=== PATIENT | female | born 1955 | race Asian ===

== ENCOUNTER 2019-08-19 22:06 | Inpatient (IN) | payer SELFPAY ==
[~2019-08-19] VITALS: Ht 157.5 cm; Wt 44.5 kg
--- NOTE | 2019-08-19 22:28 | NUR ---
PATIENT CAME TO ER BED 9 BIB [facility] FROM SNF C/O BLOOD IN STOOL. PER EMS REPORT, PATIENT WAS FOUND WITH BLOOD IN STOOL FROM FACILITY. PT HAS A WOUND VAC ON RIGHT CALF. PT IS ICELANDIC SPEAKING ONLY. PT DENIES ANY PAIN. PATIENT IS ALERT AND AWAKE. PT HAS A TRACHEOSTOMY. CONNECTED TO MONITOR.
[2019-08-19] MEDS ORDERED: PANTOPRAZOLE 80 MG in IV NS 0.9% 100 ML IV ONE (22:30)
[2019-08-19] MEDS ORDERED: PANTOPRAZOLE 40 MG VIAL ONE (22:31)
[2019-08-19 22:47] LABS: BASOPHILS % (AUTO) 0.4 % (0.0-2.0); EOSINOPHILS % (AUTO) 3.4 % (0.0-6.0); LYMPHOCYTES # (AUTO) 2.6 /CMM (0.8-4.8); MEAN CORPUSCULAR HGB CONC 33 g/dl (31.0-36.0); MEAN CORPUSCULAR VOLUME 91 fL (82-100); MONOCYTES # (AUTO) 1.1 /CMM (0.1-1.30); MONOCYTES % (AUTO) 8.5 % (2.0-12.0); NEUTROPHILS # (AUTO) 8.4 /CMM (1.8-8.9); NEUTROPHILS % (AUTO) 66.7 % (43.0-81.0); PLATELET COUNT (AUTO) 492 /CMM (150-450); WHITE BLOOD COUNT (AUTO) 12.6 K/uL (4.3-11.0)
[2019-08-19 22:48] LABS: HEMATOCRIT 22 % (33-45); HEMOGLOBIN 7.2 g/dL (11.5-14.8); RED BLOOD CELL COUNT(AUTO) 2.39 MIL/uL (4.0-5.2)
[2019-08-19 22:54] LABS: CALCIUM, SERUM 7.8 mg/dL (8.5-10.1); CREATININE 0.7 mg/dL (0.6-1.3); POTASSIUM 3.6 mmol/L (3.5-5.1)
[2019-08-19 23:00] LABS: ALBUMIN 1.7 g/dL (3.4-5.0); BILIRUBIN,TOTAL 0.2 mg/dL (0.2-1.0); TOTAL PROTEIN, SERUM 5.6 g/dL (6.4-8.2)
[2019-08-20] MEDS ORDERED: ALBUTEROL FS 2.5 MG/0.5 ML VIAL.NEB NEB PRN (00:30)
[2019-08-20] MEDS ORDERED: IV D5/ 0.9% NACL 1,000 ML IV PRN (00:30)
[2019-08-20] MEDS ORDERED: LORAZEPAM INJ 2 MG/ML VIAL IV PRN (00:30)
[2019-08-20] MEDS ORDERED: Z GUARD REMEDY 2 OZ OINT TP PRN (00:30)
[2019-08-20] MEDS ORDERED: ONDANSETRON HCL/PF 4 MG/2 ML VIAL IVP PRN (00:30)
[2019-08-20] MEDS ORDERED: ACETAMINOPHEN 650 MG/SUPP.RECT RC PRN (00:30)
[2019-08-20] MEDS ORDERED: IPRATROPIUM NEB FS 0.5 MG/2.5 ML AMPUL.NEB NEB PRN (00:30)
--- NOTE | 2019-08-20 00:43 | NUR ---
REPORT GIVEN TO TITI QUIROZ ROLAN
--- NOTE | 2019-08-20 01:20 | NUR ---
PILE OPERATOR OPENING/ADMITTING NOTES RECEIVED PATIENT VIA NORMARKENIA FROM ER. DX GI BLEED. PATIENT AWAKE, A/OX2, ABLE TO MAKE NEEDS KNOWN, WOLOF SPEAKING, KNOWS LITTLE SINHALA. DENIES ANY PAIN AT THE MOMENT. ON TELE MONITOR ST WITH HR 120'S. TRACH NOTED AND PLACED ON OXYGEN 3L VIA NASAL CANNULA, NO SOB OR RESPIRATORY DISTRESS NOTED. IV SITES CONY PICC, FLUSHING AND PATENT, SITE C/D/I. SKIN ASSESSMENT DONE AND RECORDED (SEE FLOWSHEET). RIGHT POSTERIOR LEG NOTED WITH WOUND VAC, SITE INTACT. PATIENT ORIENTED TO ROOM. KEPT PT CLEAN, DRY, AND COMFORTABLE. SAFETY MEASURES IN PLACE; BED IS LOW AND IN LOCKED POSITION, CALL LIGHT WITHIN REACH, BED ALARM ON, SR UPX3, HOB ELEVATED. WILL CONTINUE TO MONITOR PT CLOSELY. WILL ATTEND TO ADMITTING ORDERS.
[2019-08-20 01:42] VITALS: BP 136/76
[2019-08-20 04:00] VITALS: BP 157/119
--- NOTE | 2019-08-20 07:20 | NUR ---
ETHYLBENZENE OXIDIZER CLOSING NOTES PATIENT SLEEPING IN BED, BUT EASY TO AROUSE, A/OX2. NO DISTRESS NOTED. ON TELE MONITOR ST WITH HR 100'S. TRACH ON OXYGEN 3L, NO SOB OR RESPIRATORY DISTRESS NOTED. KEPT PT CLEAN, DRY, AND COMFORTABLE. SAFETY MEASURES IN PLACE; BED IS LOW AND IN LOCKED POSITION, CALL LIGHT WITHIN REACH, BED ALARM ON, SR UPX3, HOB ELEVATED. ENDORSED TO AM RN FOR ROLAN.
--- NOTE | 2019-08-20 07:32 | NUR ---
RN OPENING NOTE: RECEIVED PATIENT RESTING IN BED THIS MORNING. NO ACUTE DISTRESS NOTED. ALERT X2. PATIENT HAS TRACH ON 3L T-PIECE, TOLERATING WELL. ON TELE MONITOR, SINUS TACHY NOTED. PATIENT IS NPO. PICC LINE AT [facility], FLUSHING WELL, SITE C/D/I, NO SIGNS OF COMPLICATIONS NOTED. WOUND VAC NOTED ON RLE, DRAINING WELL, DRESSING INTACT. RHONCHI HEARD UPON AUSCULTATION. SAFETY MEASURES IMPLICATED. BED IN LOWEST POSITION, LOCKED, SIDE RAILS UP X2, CALL LIGHT WITHIN REACH. WILL CONTINUE TO MONITOR PATIENT FOR ANY CHANGES. Addendum: 08/20/19 at 0801 by EMILY DAS RN PATIENT HAS GT. FEEDING HELD D/T NPO.
[2019-08-20 08:00] VITALS: BP 147/69
[2019-08-20] MEDS: PANTOPRAZOLE 40 MG VIAL IV SCH ×2 (08:15→20:47)
[2019-08-20] MEDS ORDERED: ACETAMINOPHEN 325 MG TABLET PO PRN (10:00)
[2019-08-20] MEDS ORDERED: diphenhydrAMINE HCL 50 MG CAPSULE PO PRN (10:00)
[2019-08-20] MEDS: IV D5/ 0.9% NACL 1,000 ML IV SCH ×2 (10:09→16:46)
[2019-08-20 10:13] LABS: HEMATOCRIT 24 % (33-45); HEMOGLOBIN 8.1 g/dL (11.5-14.8); MEAN CORPUSCULAR HGB CONC 34 g/dl (31.0-36.0); MEAN CORPUSCULAR VOLUME 91 fL (82-100); PLATELET COUNT (AUTO) 584 /CMM (150-450); RED BLOOD CELL COUNT(AUTO) 2.65 MIL/uL (4.0-5.2); WHITE BLOOD COUNT (AUTO) 12.8 K/uL (4.3-11.0)
[2019-08-20] MEDS ORDERED: PIPERACILLIN /TAZOBACTAM 3.375 G in IV D5W 50 ML IV ONE (10:30)
[2019-08-20 11:04] LABS: OCCULT BLOOD STOOL NEGATIVE (NEGATIVE)
[2019-08-20] MEDS ORDERED: ALTEPLASE CATHFLO 2 MG/VIAL IV ONE (11:30)
--- NOTE | 2019-08-20 11:54 | NUR ---
PATIENT HAS A PICC LINE DOUBLE LUMEN. ONE PORT IS CLOGGED. CONTACTED , NEW ORDER FOR ACTIVASE. MD IS AWARE OF PATIENT'S GI BLEED. Addendum: 08/20/19 at 1330 by EMILY DAS RN PATIENT'S LUMEN UNCLOGGED WITH CATHFLO. LINE FLUSHES AND POSITIVE BLOOD RETURN ON ASPIRATION.
[2019-08-20 12:00] VITALS: BP 165/77
[2019-08-20] MEDS: MORPHINE SULFATE INJ 2 MG/ML DISP.SYRIN IV PRN (15:44)
[2019-08-20 16:00] VITALS: BP_SYST 165; BP_SYST 176; BP_DIAS 70; BP_DIAS 81
--- NOTE | 2019-08-20 16:19 | NUR ---
PATIENT'S 0955 HGB 8.1, CONTACTED DR DE LA CRUZ FOR VERIFICATION ON WHETHER OR NOT TO INFUSE BLOOD D/T HGB INCREASING FROM 7.2. AWAITING RESPONSE BACK. Addendum: 08/20/19 at 1713 by CHRIST FIGUEROA RN MD ORDERED TO HOLD BLOOD TRANSFUSION, REPEAT H&H AND CONTACT HIM WITH NEW RESULTS
[2019-08-20] MEDS: PIPERACILLIN /TAZOBACTAM 3.375 G in IV D5W 100 ML IV SCH (16:45)
[2019-08-20 17:46] LABS: HEMOGLOBIN 8.2 g/dL (11.5-14.8)
--- NOTE | 2019-08-20 19:26 | NUR ---
RN CLOSING NOTE: PATIENT IS IN BED RESTING WITH NO ACUTE CHANGES NOTED. VSS. PATIENT NEEDS HAVE BEEN MET. PATIENT HAS TRACH, AEROSOL @ 3L, NO SIGNS OF RESPIRATORY DISTRESS NOTED. PICC LINE AT CONY, BOTH LUMENS FLUSHING WELL, SITE C/D/I, NO SIGNS OF COMPLICATIONS NOTED. WOUND VACC AT RLE, DRAINING WELL. WOUND CONSULT PENDING. GT SITE C/D/I, CLAMPED, PT NPO. SAFETY MEASURES HAVE BEEN IMPLEMENTED, CALL LIGHT WITHIN REACH, BED IN LOWEST AND LOCKED POSITION, SIDE RAILS UP X2. PATIENT HAS BEEN ENDORSED TO ONCOMING SHIFT FOR CONTINUITY OF CARE.
--- NOTE | 2019-08-20 19:31 | NUR ---
MS RN OPENING NOTES PATIENT RECEIVED RESTING IN BED, A/O X2-3 K[place]AKH SPEAKING, KNOWS LITTLE DIVEHI. PATIENT HAS TRACH, AEROSOL AT 3L, BREATHING EVEN AND UNLABORED NO SIGNS OF RESPIRATORY DISTRESS. NO SIGNS OF ACUTE DISTRESS AND NO CURRENT COMPLAINTS OF PAIN OR DISCOMFORT. PICC JOSELINE LOCATED ON CONY BOTH LUMENS PATENT AND INTACT. WOUND VACC NOTED ON RIGHT LOWER LEG. GTUBE SITE NOTED AND CLAMPED. SAFETY PRECAUTIONS IN PLACE WITH BED IN LOWEST POSITION, BREAKS ON, SIDE RAILS UP X 2, AND CALL LIGHT WITHIN REACH. WILL CONTINUE TO MONITOR.
[2019-08-20 20:00] VITALS: BP 166/79
[2019-08-20] MEDS ORDERED: methylPREDNISolone SOD SUCC 500 MG in IV NS 0.9% 100 ML IV SCH (20:00)
[2019-08-21] MEDS: PIPERACILLIN /TAZOBACTAM 3.375 G in IV D5W 100 ML IV SCH ×2 (00:23→05:22)
--- NOTE | 2019-08-21 06:49 | NUR ---
MS RN CLOSING NOTES PATIENT IS IN BED RESTING A/O X3, LATVIAN SPEAKING MOSTLY BUT ABLE TO UNDERSTAND ANGUILLAN. PATIENT NEEDS HAVE BEEN MET, PATIENT WAS KEPT CLEAN THROUGHOUT THE NIGHT. PATIENT HAS TRACH, AEROSOL @ 3L, NO SIGNS OF RESPIRATORY DISTRESS NOTED. PATIENT WAS SUCTIONED NEEDED. PICC LINE AT CONY, BOTH LUMENS FLUSHING WELL, RUNNING D5NS @100ML/ HR. WOUND VACC AT RLE, DRAINING WELL. WOUND CONSULT PENDING. GT SITE CLAMPED, PT NPO. SAFETY MEASURES HAVE BEEN IMPLEMENTED, CALL LIGHT WITHIN REACH, BED IN LOWEST AND LOCKED POSITION, SIDE RAILS UP X2. PATIENT HAS BEEN ENDORSED TO ONCOMING SHIFT FOR CONTINUITY OF CARE.
[2019-08-21 07:08] LABS: BASOPHILS # (AUTO) 0.1 /CMM (0.0-0.2); BASOPHILS % (AUTO) 0.5 % (0.0-2.0); EOSINOPHILS % (AUTO) 1.7 % (0.0-6.0); HEMATOCRIT 23 % (33-45); HEMOGLOBIN 7.6 g/dL (11.5-14.8); LYMPHOCYTES # (AUTO) 2.9 /CMM (0.8-4.8); LYMPHOCYTES % (AUTO) 22.4 % (20.0-44.0); MEAN CORPUSCULAR HGB CONC 33 g/dl (31.0-36.0); MEAN CORPUSCULAR VOLUME 91 fL (82-100); MONOCYTES # (AUTO) 0.8 /CMM (0.1-1.30); MONOCYTES % (AUTO) 6.3 % (2.0-12.0); NEUTROPHILS # (AUTO) 8.9 /CMM (1.8-8.9); NEUTROPHILS % (AUTO) 69.1 % (43.0-81.0); PLATELET COUNT (AUTO) 607 /CMM (150-450); RED BLOOD CELL COUNT(AUTO) 2.51 MIL/uL (4.0-5.2); WHITE BLOOD COUNT (AUTO) 12.9 K/uL (4.3-11.0)
[2019-08-21 07:20] LABS: CALCIUM, SERUM 7.9 mg/dL (8.5-10.1); CREATININE 0.7 mg/dL (0.6-1.3); MAGNESIUM 1.5 mg/dL (1.8-2.4); PHOSPHORUS 3.1 mg/dL (2.5-4.9); POTASSIUM 3.1 mmol/L (3.5-5.1)
--- NOTE | 2019-08-21 07:30 | NUR ---
MS RN OPENING NOTES PATIENT IN STABLE CONDITION. AWAKE, A/O X3 NO SIGNS OF DISTRESS NOTED AT THE MOMENT. PATIENT HAS A TRACH IN PLACE, ON O2 WITH 5L OXYGEN RUNNING THROUGH T PIECE. PATIENT IS TOLERATING WELL, SATURATION @95% or >. PATIENT HAS A PICC LINE IN PLACE, INTACT PATENT AND FLUSHED WELL. NO S.S OF INFECTION NOTED. D5 NS RUNNING @ 100MLS/HR. SAFETY MAINTAINED, CALL LIGHT WITHIN REACH, WILL CONTINUE TO MONITOR CLOSELY.
[2019-08-21 08:00] VITALS: BP 165/90
[2019-08-21] MEDS: PANTOPRAZOLE 40 MG VIAL IV SCH (08:05)
[2019-08-21] MEDS: MORPHINE SULFATE INJ 2 MG/ML DISP.SYRIN IV PRN (08:06)
[2019-08-21] MEDS ORDERED: PIPE3.376 IV (09:32)
--- NOTE | 2019-08-21 10:04 | NUR ---
WOUND CARE CONSULT: PT PRESENTS WITH SOME REDNESS/RASH TO PERINEAL/BUTTOCKS AREAS WITH SKIN DISCOLORATION WELL RT GREAT TOE AMPUTATION STUMP AND KCI FREEDOM VAC TO RT LOWER LEG, PRESENT ON ADMISSION. KCI VAC FUNCTIONING WELL AT 125mmHg CONTINUOUS SETTING. VAC DRESSING IS PATENT AND VAC IS FUNCTIONING WELL WITH 200cc SEROSANGUINOUS DRAINAGE IN CANISTER. PER SENDING FACILITY, PT IS FOLLOWED BY ORTHO SURGEON. RECOMMENDATIONS MADE FOR SKIN PROTECTION. DISCUSSED WITH NURSING STAFF. MD IN AGREEMENT WITH PLAN OF CARE. Addendum: 08/21/19 at 1014 by ANNA MOSES WNDNU Amended: Links added.
[2019-08-21] MEDS: POTASSIUM CHLORIDE 20 MEQ TAB.PRT.SR PO SCH ×2 (10:56→11:11)
[2019-08-21] MEDS: Magnesium 1GM/D5W 100ML PREMIX 100 ML IV SCH ×2 (10:56→12:28)
[2019-08-21] MEDS ORDERED: CLONIDINE HCL 0.1 MG TABLET PO PRN (12:00)
--- NOTE | 2019-08-21 15:30 | NUR ---
RN CLOSING NOTES PATIENT WAS SEEN BY DR DE LA CRUZ EARLIER. DC ORDERS WERE PLACED, PATIENT WAS CLEARED TO GO BACK TO [facility]. CALLED THE REHAB PLACE AND GAVE REPORT TO GABRIELLA PURDY. PATIENT IN STABLE CONDITION, ALL PATIENT NEEDS MET. SPOKE TO HER SON TO NOTIFY ABOUT THE DISCHARGE OF THE PATIENT. DISCHARGE INSTRUCTIONS WERE PROVIDED TO THE PATIENT, PT UNABLE TO SIGN, SIGNED BY ME AND ANOTHER NURSE. PATIENT WAS PICKED UP BY AMBULANCE, TRANSPORTED VIA [facility]. PICTURES WERE TAKEN LAST NIGHT, WRONG DATE ON THE PICTURES CLARIFIED WITH THE CHARGE NURSE. OFFERED TO RETAKE THE PICTURES, PATIENT REFUSED. SAFETY MAINTAINED, [facility].
[2019-08-21 16:00] VITALS: BP 156/82
[2019-08-21] MEDS ORDERED: CLOTRIMAZOLE 1% 15 GM TUBE TP SCH (17:00)
== END 2019-08-21 17:00 | DRG 189 ==
LOC: EDSEX 22:15 → ER 22:15 → TELE1 23:54 → MEDSG1 08-20 08:52
PROVIDERS: ADMIT Internal Medicine; ATTEND Internal Medicine
PROC: B548ZZA Ultrasonography of Superior Vena Cava, Guidance (ICD-10-PCS; principal; 2019-08-21)
PROC: 02HV33Z Insertion of Infusion Device into Superior Vena Cava, Percutaneous Approach (ICD-10-PCS; principal; 2019-08-21)
DX: J96.20 Acute and chronic respiratory failure, unspecified whether with hypoxia or hypercapnia (principal); N17.0 Acute kidney failure with tubular necrosis; E43 Unspecified severe protein-calorie malnutrition; J18.9 Pneumonia, unspecified organism; G93.40 Encephalopathy, unspecified; F29 Unspecified psychosis not due to a substance or known physiological condition; I10 Essential (primary) hypertension; D50.0 Iron deficiency anemia secondary to blood loss (chronic); Z93.1 Gastrostomy status; R13.10 Dysphagia, unspecified; J45.909 Unspecified asthma, uncomplicated; Z93.0 Tracheostomy status
CPT/HCPCS: 31720; 36415; 71045-TC; 71250-TC; 80048-TC; 80076-TC; 82272-TC; 83735-TC; 84100-TC; 85025-TC; 85027-TC; 85730-TC; 86850-TC; 86921-TC; 94640-TC; 94664-TC; A7526; C9113; G0378; J2060; J2270; J2543; J2930; J2997; J3475; J7030; J7042; J7050; J7060; J7070

== ENCOUNTER 2020-12-20 12:46 | Inpatient (IN) | payer MEDICAID ==
[~2020-12-20] VITALS: Ht 162.6 cm; Wt 52.2 kg
[~2020-12-20 12:46] MED LIST: PIPE3.376 IV
[2020-12-20 13:45] LABS: BASOPHILS # (AUTO) 0.1 /CMM (0.0-0.2); BASOPHILS % (AUTO) 0.4 % (0.0-2.0); HEMATOCRIT 31 % (33-45); HEMOGLOBIN 10.4 g/dL (11.5-14.8); LYMPHOCYTES # (AUTO) 3.6 /CMM (0.8-4.8); LYMPHOCYTES % (AUTO) 19.3 % (20.0-44.0); MEAN CORPUSCULAR HGB CONC 33 g/dl (31.0-36.0); MEAN CORPUSCULAR VOLUME 95 fL (82-100); MONOCYTES # (AUTO) 1.5 /CMM (0.1-1.30); MONOCYTES % (AUTO) 8.2 % (2.0-12.0); NEUTROPHILS # (AUTO) 13.3 /CMM (1.8-8.9); NEUTROPHILS % (AUTO) 71.1 % (43.0-81.0); PLATELET COUNT (AUTO) 433 /CMM (150-450); WHITE BLOOD COUNT (AUTO) 18.6 K/uL (4.3-11.0)
--- NOTE | 2020-12-20 13:47 | NUR ---
VALERIANO CROW FROM [facility] TO ER BED 12. AAOX2. NOT IN RESP DISTRESS, ON O2 VIA NC @ 2LPM. PT HAVE A TRACHEOSTOMY BUT IT IS CAPPED. BED BOUND. SENT BY THE PMD FOR ELEVATED WBC OF 12.1 AND POSITIVE BLOOD CULTURE RESULT. PT WAS REPORT TO HAVE HAD FEVER 2 DAYS AGO. AWAITING MD FOR EVAL.
[2020-12-20 14:00] LABS: CALCIUM, SERUM 8.6 mg/dL (8.5-10.1); CARBON DIOXIDE 33 mmol/L (21-32); CHLORIDE 98 mmol/L (98-107); CREATININE 0.7 mg/dL (0.6-1.3); GLUCOSE 141 mg/dL (74-106); POTASSIUM 4.5 mmol/L (3.5-5.1); SODIUM SERUM 132 mmol/L (136-145); UREA NITROGEN, BLOOD 38 mg/dL (7-18)
[2020-12-20 14:06] LABS: ALANINE AMINOTRANSFERASE 25 U/L (12-78); ALBUMIN 3.1 g/dL (3.4-5.0); ALKALINE PHOSPHATASE 106 U/L (46-116); ASPARTATE AMINOTRANSFERASE 17 U/L (15-37); BILIRUBIN,TOTAL 0.1 mg/dL (0.2-1.0); TOTAL PROTEIN, SERUM 6.4 g/dL (6.4-8.2)
--- NOTE | 2020-12-20 14:41 | NUR ---
urine collected via in and out cath as per md ordered and sent to lab
[2020-12-20] MEDS ORDERED: IV LR 1000 ML 1,000 ML IV ONE (15:00)
[2020-12-20] MEDS ORDERED: CHLO118L4 TP (15:11)
[2020-12-20] MEDS ORDERED: INSU100V39 SQ (15:11)
[2020-12-20] MEDS ORDERED: ALBU18HF2 IH ×2 (15:11)
[2020-12-20] MEDS ORDERED: ACET650S26 GT (15:11)
[2020-12-20] MEDS ORDERED: DOCU-141 GT (15:11)
[2020-12-20] MEDS ORDERED: FENTANYL PATCH TD (15:11)
[2020-12-20] MEDS ORDERED: MAGN400O6 GT (15:11)
[2020-12-20] MEDS ORDERED: MELA3TAB41 GT (15:11)
[2020-12-20] MEDS ORDERED: OMEP20CA15 GT (15:11)
[2020-12-20] MEDS ORDERED: SODI100037 GT (15:11)
[2020-12-20] MEDS ORDERED: POLY17PO4 GT (15:11)
[2020-12-20] MEDS ORDERED: LISI20TA30 GT (15:11)
[2020-12-20] MEDS ORDERED: ASCO500C17 GT (15:11)
[2020-12-20] MEDS ORDERED: AMLO10TA4 GT (15:11)
[2020-12-20] MEDS ORDERED: NA P133E RC (15:11)
[2020-12-20] MEDS ORDERED: METF-440 GT (15:11)
[2020-12-20] MEDS ORDERED: ENOX40DI SQ (15:11)
[2020-12-20] MEDS ORDERED: FOLI0.8T3 GT (15:11)
[2020-12-20] MEDS ORDERED: HYDR-3972 GT (15:11)
[2020-12-20] MEDS ORDERED: FERR300L GT (15:11)
[2020-12-20] MEDS ORDERED: THIA100T74 GT (15:11)
[2020-12-20] MEDS ORDERED: CLON0.1T GT (15:11)
[2020-12-20] MEDS ORDERED: METO50TA16 GT (15:11)
[2020-12-20 15:25] LABS: BILIRUBIN,URINE Negative (NEGATIVE); COLOR,URINE YELLOW (YELLOW); LEUKOCYTE ESTERASE ,URINE Large (NEGATIVE); NITRITE, URINE Negative (NEGATIVE); PROTEIN,URINE 100 mg/dl (NEGATIVE); UGLUCOSE Negative (NEGATIVE); UROBILINOGEN,URINE 0.2 EU/dL (0.2)
[2020-12-20 15:43] LABS: BACTERIA,URINE 3+ /HPF (None Seen); WBC,URINE TOO NUMEROUS TO COUN /HPF (0-3)
[2020-12-20 15:44] LABS: MUCUS,URINE Few /LPF (None Seen); SQUAMOUS EPITHELIAL CELL,UR Few /HPF (None Seen); URINE AMORPHOUS PHOSPHATES Many /HPF (None Seen)
[2020-12-20] MEDS ORDERED: PIPERACILLIN /TAZOBACTAM 3.375 G VIAL IV ONE (15:57)
[2020-12-20] MEDS ORDERED: ONDANSETRON HCL/PF 4 MG/2 ML VIAL IVP PRN (16:00)
[2020-12-20] MEDS ORDERED: TEMAZEPAM 15 MG CAPSULE GT PRN ×2 (16:00→16:30)
[2020-12-20] MEDS ORDERED: Z GUARD REMEDY 2 OZ OINT TP PRN (16:00)
[2020-12-20] MEDS ORDERED: PIPERACILLIN /TAZOBACTAM 3.375 G in IV D5W 50 ML IV ONE (16:00)
[2020-12-20] MEDS ORDERED: MAGNESIUM HYDROXIDE 30 ML UDC PO PRN (16:00)
[2020-12-20] MEDS ORDERED: HYDROCODONE/APAP 5/325MG TABLET GT PRN ×2 (16:00→20:13)
[2020-12-20] MEDS ORDERED: MAG HYDROX/AL HYDROX/SIMETH 30 ML UDC PO PRN (16:00)
[2020-12-20] MEDS ORDERED: ACETAMINOPHEN 325 MG TABLET PO PRN (16:00)
--- NOTE | 2020-12-20 16:08 | NUR ---
covid swab done and sent to lab
[2020-12-20] MEDS ORDERED: HYDROCODONE/APAP 5/325MG TABLET PO PRN (16:13)
[2020-12-20] MEDS ORDERED: TEMAZEPAM 15 MG CAPSULE PO PRN (16:15)
--- NOTE | 2020-12-20 16:17 | NUR ---
NURSE WILL CALL BACK FOR REPORT.
[2020-12-20] MEDS ORDERED: MAGNESIUM HYDROXIDE 30 ML UDC GT PRN (16:30)
[2020-12-20] MEDS ORDERED: ACETAMINOPHEN 650 MG/20.3 ML UDC GT PRN ×2 (16:30)
[2020-12-20] MEDS ORDERED: CLONIDINE HCL 0.1 MG TABLET GT PRN (16:30)
[2020-12-20] MEDS ORDERED: ALBUTEROL FS 2.5 MG/0.5 ML VIAL.NEB NEB PRN (16:30)
[2020-12-20] MEDS ORDERED: NA PHOS,M-B/NA PHOS,DI-BA 1 EA ENEMA RC PRN (16:30)
--- NOTE | 2020-12-20 16:48 | NUR ---
report given to GABRIELLA Recio for jason.
[2020-12-20] MEDS ORDERED: ENOXAPARIN SODIUM 40 MG/0.4 ML DISP.SYRIN SQ SCH (17:00)
[2020-12-20] MEDS ORDERED: DOCUSATE SODIUM 100 MG CAPSULE PO SCH (17:00)
[2020-12-20 17:15] VITALS: BP 126/78
--- NOTE | 2020-12-20 17:18 | NUR ---
PT TRANSPORTED BY EMT ON STABLE CONDITION. NAD NOTED DURING TRANSPORT.
[2020-12-20] MEDS ORDERED: POLYETHYLENE GLYCOL 3350 17 GM POWD.PACK GT PRN (17:30)
--- NOTE | 2020-12-20 17:30 | NUR ---
PATIENT RECEIVED FROM ED AT 1710. VITALS ASSESSED AND DOCUMENTED.
[2020-12-20] MEDS: LISINOPRIL (20MG) 20 MG TABLET GT SCH (17:46)
[2020-12-20] MEDS: SODIUM CHLORIDE 1000 MG TABLET GT SCH (17:46)
[2020-12-20] MEDS: IV NS 0.9% 1,000 ML IV PRN (17:57)
[2020-12-20] MEDS ORDERED: VANCOMYCIN 1 GM in IV D5W 250 ML IV ONE (18:00)
--- NOTE | 2020-12-20 18:37 | NUR ---
NURSE OBGYN NOTES DR. MARCELINO CASTILLO, INFORMED ABOUT PHARMACY ASKING FOR THE [facility] PATCH ORDER FORM TO BE FAXED TO THEM, PER DR. MARCELINO CASTILLO, HOLD [facility] FOR NOW.
--- NOTE | 2020-12-20 19:29 | NUR ---
RN CLOSING NOTES Patient is alert and oriented. Patient is breathing even and unlabored. no c/o pain or discomfort. patient is on 2 lpm 02 via n/c with 02 sat of 98%. On g tube feeding glucerna running at 45 cc/hour, nilo well. Iv site to right forearm noted with iv atb vanco hanging and running well. Endorsed to next shift. Bed is in lowest and locked position.
[2020-12-20 20:00] VITALS: BP 135/62
[2020-12-20] MEDS ORDERED: PIPERACILLIN /TAZOBACTAM 3.375 G in IV D5W 50 ML IV SCH (21:00)
[2020-12-20] MEDS ORDERED: MAG HYDROX/AL HYDROX/SIMETH 30 ML UDC GT PRN (22:00)
[2020-12-20] MEDS: METOPROLOL TARTRATE 50 MG TABLET GT SCH (22:06)
[2020-12-20] MEDS: CHLORHEXIDINE GLUCONATE 15 ML UDC MM SCH (22:06)
[2020-12-20] MEDS: ENOXAPARIN SODIUM 40 MG/0.4 ML DISP.SYRIN SQ SCH (22:12)
[2020-12-20] MEDS: PIPERACILLIN /TAZOBACTAM 3.375 G in IV D5W 100 ML IV SCH (22:16)
[2020-12-20] MEDS: THIAMINE HCL 100 MG TABLET GT SCH (22:23)
[2020-12-21 04:00] VITALS: BP 118/57
[2020-12-21] MEDS: PIPERACILLIN /TAZOBACTAM 3.375 G in IV D5W 100 ML IV SCH ×3 (04:59→21:16)
[2020-12-21] MEDS: VANCOMYCIN 0.75 GM in IV D5W 250 ML IV SCH ×2 (05:07→17:52)
[2020-12-21 06:09] LABS: BASOPHILS # (AUTO) 0.1 /CMM (0.0-0.2); BASOPHILS % (AUTO) 0.4 % (0.0-2.0); EOSINOPHILS % (AUTO) 2.9 % (0.0-6.0); HEMATOCRIT 30 % (33-45); HEMOGLOBIN 10.2 g/dL (11.5-14.8); LYMPHOCYTES # (AUTO) 2.6 /CMM (0.8-4.8); LYMPHOCYTES % (AUTO) 18.5 % (20.0-44.0); MEAN CORPUSCULAR HGB CONC 34 g/dl (31.0-36.0); MEAN CORPUSCULAR VOLUME 95 fL (82-100); MONOCYTES # (AUTO) 1.2 /CMM (0.1-1.30); MONOCYTES % (AUTO) 8.3 % (2.0-12.0); NEUTROPHILS # (AUTO) 9.9 /CMM (1.8-8.9); NEUTROPHILS % (AUTO) 69.9 % (43.0-81.0); PLATELET COUNT (AUTO) 399 /CMM (150-450); RED BLOOD CELL COUNT(AUTO) 3.22 MIL/uL (4.0-5.2); WHITE BLOOD COUNT (AUTO) 14.1 K/uL (4.3-11.0)
[2020-12-21] MEDS: IV NS 0.9% 1,000 ML IV PRN (06:26)
--- NOTE | 2020-12-21 06:33 | NUR ---
RN notes In bed resting comfortably with no distress noted. On 2lpm O2 via nasal cannula, tolerating well. Alert and oriented. Greek speaking only but understand irish. Has a trach with plug. No significant change of condition. Vital signs wnl. Gtube patent and in place tolerating feeding well. Kept clean and dry. Will endorse to next shift for continuity of care.
[2020-12-21 07:01] LABS: CALCIUM, SERUM 8.6 mg/dL (8.5-10.1); CREATININE 0.9 mg/dL (0.6-1.3); MAGNESIUM 2.3 mg/dL (1.8-2.4); PHOSPHORUS 3.4 mg/dL (2.5-4.9); POTASSIUM 4.1 mmol/L (3.5-5.1)
--- NOTE | 2020-12-21 07:30 | NUR ---
RN OPENING NOTES Patient is alert and oriented. Patient is breathing even and unlabored. no c/o pain or discomfort. patient is on 2 lpm 02 via n/c with 02 sat of 96%. On g tube feeding glucerna running at 45 cc/hour, nilo well.Bed is in lowest and locked position. Call light with in reach.
[2020-12-21 07:36] LABS: THYROID STIMULATING HORMONE 0.652 uIU/mL (0.358-3.74)
[2020-12-21 08:00] VITALS: BP 98/56
[2020-12-21] MEDS: AMLODIPINE BESYLATE 10 MG TABLET GT SCH (08:14)
[2020-12-21] MEDS: METOPROLOL TARTRATE 50 MG TABLET GT SCH ×2 (08:14→21:14)
[2020-12-21] MEDS: LISINOPRIL (20MG) 20 MG TABLET GT SCH ×2 (08:15→16:24)
[2020-12-21] MEDS: ASCORBIC ACID 500 MG TABLET GT SCH (08:20)
[2020-12-21] MEDS: SODIUM CHLORIDE 1000 MG TABLET GT SCH ×2 (08:20→16:23)
[2020-12-21] MEDS: CHLORHEXIDINE GLUCONATE 15 ML UDC MM SCH ×2 (08:20→21:13)
[2020-12-21] MEDS: FERROUS SULFATE UDC 300 MG/5 ML UDC GT SCH (08:20)
[2020-12-21] MEDS: PANTOPRAZOLE 40 MG VIAL IV SCH (08:20)
[2020-12-21] MEDS: DOCUSATE SODIUM LIQ 100 MG/10 ML UDC GT SCH ×2 (08:20→16:24)
[2020-12-21] MEDS: FOLIC ACID 1 MG TABLET GT SCH (08:20)
[2020-12-21] MEDS ORDERED: POLYETHYLENE GLYCOL 3350 17 GM POWD.PACK GT SCH (09:00)
[2020-12-21] MEDS ORDERED: ENOXAPARIN SODIUM 40 MG/0.4 ML DISP.SYRIN SQ SCH (09:00)
[2020-12-21 16:00] VITALS: BP 148/76
--- NOTE | 2020-12-21 19:04 | NUR ---
RN CLOSING NOTES Patient is alert and oriented. Patient is breathing even and unlabored. no c/o pain or discomfort. patient is on 2 lpm 02 via n/c with 02 sat of 100%. On g tube feeding glucerna running at 45 cc/hour, nilo well. Iv site to right forearm noted and running normal saline at 75cc/hour. Will endorse to next shift. Bed is in lowest and locked position.
--- NOTE | 2020-12-21 20:00 | NUR ---
RN NOTE RECEIVED PT IN BED A/A/O X2, ON 2 L VIIA NC, PT HAS G TUBE FEEDING,RUNNING AT 45 ML/H,NO RESIDUAL NOTE, WILL CONTINUE WITH PLAN OF CARE.
[2020-12-21] MEDS: ENOXAPARIN SODIUM 40 MG/0.4 ML DISP.SYRIN SQ SCH (21:13)
[2020-12-21] MEDS: THIAMINE HCL 100 MG TABLET GT SCH (21:14)
[2020-12-22] MEDS: IV NS 0.9% 1,000 ML IV PRN (00:35)
[2020-12-22] MEDS: GLUCERNA 1.2 1,000 ML BOTTLE GT PRN (01:59)
[2020-12-22 04:00] VITALS: BP 142/68
[2020-12-22] MEDS: VANCOMYCIN 0.75 GM in IV D5W 250 ML IV SCH (05:00)
[2020-12-22] MEDS: PIPERACILLIN /TAZOBACTAM 3.375 G in IV D5W 100 ML IV SCH ×2 (06:02→13:06)
[2020-12-22 06:34] LABS: CALCIUM, SERUM 8.5 mg/dL (8.5-10.1); CREATININE 0.9 mg/dL (0.6-1.3); POTASSIUM 4.1 mmol/L (3.5-5.1)
--- NOTE | 2020-12-22 07:17 | NUR ---
RN NOTE REPORT GIVEN TO ONCOMING SHIFT FOR ROLAN.
--- NOTE | 2020-12-22 07:30 | NUR ---
RN OPENING NOTE PT A/Ox2, TRACH IS CAPPED, ON NC 2LPM, SPO2 96%, NO SIGNS OF RESP DISTRESS OR SOB, BREATHING EVEN AND UNLABORED. PT ABLE TO COMMUNICATE NEEDS. PT HAS INDEPENDENT BED MOBILITY, SKIN IS INTACT, RT KNEE SCAR AND ABD BRUISING NOTED. PT HAS RFA #20 CURRENTLY RUNNING ZOSYN 25ML/HR, NS TO RESUME @ 75ML/HR ONCE FINISHED. PT G-TUBE AUSCULTATED FOR POSITIVE PLACEMENT, NO RESIDUALS NOTED, FLUSHED AND PATENT; CURRENTLY RUNNING GLUCERNA 1.2 @ 45 ML/HR x20HR, OFF 2200, ON 0200. ALL PT SAFETY PRECAUTIONS IN PLACE, WILL CONT TO MONITOR
[2020-12-22 08:00] VITALS: BP 151/64
[2020-12-22] MEDS: AMLODIPINE BESYLATE 10 MG TABLET GT SCH (09:13)
[2020-12-22] MEDS: DOCUSATE SODIUM LIQ 100 MG/10 ML UDC GT SCH ×2 (09:13→16:36)
[2020-12-22] MEDS: FERROUS SULFATE UDC 300 MG/5 ML UDC GT SCH (09:13)
[2020-12-22] MEDS: CHLORHEXIDINE GLUCONATE 15 ML UDC MM SCH ×2 (09:13→21:15)
[2020-12-22] MEDS: FOLIC ACID 1 MG TABLET GT SCH (09:14)
[2020-12-22] MEDS: ASCORBIC ACID 500 MG TABLET GT SCH (09:14)
[2020-12-22] MEDS: SODIUM CHLORIDE 1000 MG TABLET GT SCH ×2 (09:14→16:36)
[2020-12-22] MEDS: LISINOPRIL (20MG) 20 MG TABLET GT SCH ×2 (09:15→16:36)
[2020-12-22] MEDS: PANTOPRAZOLE 40 MG VIAL IV SCH (09:15)
[2020-12-22] MEDS: METOPROLOL TARTRATE 50 MG TABLET GT SCH ×2 (09:15→21:16)
[2020-12-22 16:00] VITALS: BP 130/59
--- NOTE | 2020-12-22 18:05 | NUR ---
RN NOTE 1800 VANCO DOSE HELD. 1700 VANCO TROUGH 22
--- NOTE | 2020-12-22 18:39 | NUR ---
RN CLOSING NOTE NO CHANGES TO PT STATUS DURING SHIFT. PT IN STABLE CONDITION ON 2L NC, SPO2 98%, NO S/S OF RESP DISTRESS OR SOB. G-TUBE FEEDING TO BE TURNED OFF AT 2200 AND TURNED BACK ON AT 0200 PER MD ORDER. ALL PT SAFETY PRECAUTIONS IN PLACE. WILL ENDORSE ROLAN TO ONCOMING RN
--- NOTE | 2020-12-22 20:00 | NUR ---
RN NOTE RECEIVED PT IN BED A/A/O X2, ON 2 L VIIA NC, PT HAS G TUBE FEEDING, CHECKED FOR PLACEMENT , GLUCERNA 1.2 RUNNING AT 45 ML/H,NO RESIDUAL NOTE, WILL CONTINUE WITH PLAN OF CARE
[2020-12-22] MEDS: LEVOFLOXACIN (250MG) 250 MG TABLET PO SCH (21:15)
[2020-12-22] MEDS: ENOXAPARIN SODIUM 40 MG/0.4 ML DISP.SYRIN SQ SCH (21:16)
[2020-12-22] MEDS: THIAMINE HCL 100 MG TABLET GT SCH (22:28)
[2020-12-23] MEDS: IV NS 0.9% 1,000 ML IV PRN (00:56)
[2020-12-23] MEDS: GLUCERNA 1.2 1,000 ML BOTTLE GT PRN (02:16)
[2020-12-23 04:00] VITALS: BP 128/67
[2020-12-23 05:51] LABS: BASOPHILS % (AUTO) 0.4 % (0.0-2.0); HEMATOCRIT 30 % (33-45); HEMOGLOBIN 9.9 g/dL (11.5-14.8); LYMPHOCYTES # (AUTO) 2.4 /CMM (0.8-4.8); LYMPHOCYTES % (AUTO) 23.5 % (20.0-44.0); MEAN CORPUSCULAR HGB CONC 33 g/dl (31.0-36.0); MEAN CORPUSCULAR VOLUME 96 fL (82-100); MONOCYTES # (AUTO) 0.8 /CMM (0.1-1.30); MONOCYTES % (AUTO) 7.6 % (2.0-12.0); NEUTROPHILS # (AUTO) 6.6 /CMM (1.8-8.9); NEUTROPHILS % (AUTO) 64.5 % (43.0-81.0); PLATELET COUNT (AUTO) 385 /CMM (150-450); RED BLOOD CELL COUNT(AUTO) 3.13 MIL/uL (4.0-5.2); WHITE BLOOD COUNT (AUTO) 10.2 K/uL (4.3-11.0)
[2020-12-23 06:29] LABS: CALCIUM, SERUM 8.4 mg/dL (8.5-10.1); CREATININE 0.8 mg/dL (0.6-1.3); POTASSIUM 4.4 mmol/L (3.5-5.1)
[2020-12-23] MEDS: VANCOMYCIN HCL 0.75 GM in IV D5W 250 ML IV SCH (06:54)
--- NOTE | 2020-12-23 07:20 | NUR ---
RN NOTE REPORT GIVEN TO ONCOMING SHIFT FOR ROLAN.
--- NOTE | 2020-12-23 07:21 | NUR ---
RESIDENTIAL MANAGER NOTE PATIENT OBSERVED IN BED RECEIVING BEDSIDE REPORT FROM NOC SHIFT.NO COMPLAINTS OF PAIN AT THIS TIME, PATIENT OBSERVED WITH TRACHEOSTOMY CAPPED O2SAT OF 96%, BREATHING EVEN AND UNLABORED, NOT IN RESPIRATORY DISTRESS, ON GT FEEDING GLUCERNA 1.2 @45 CC/HR, BED WHEELS LOCK, CALL LIGHT WITHIN REACH WILL CONTINUE TO MONITOR
[2020-12-23 08:00] VITALS: BP 143/58
[2020-12-23] MEDS: FERROUS SULFATE UDC 300 MG/5 ML UDC GT SCH (08:58)
[2020-12-23] MEDS: PANTOPRAZOLE 40 MG/PACK PACK GT SCH (08:58)
[2020-12-23] MEDS: SODIUM CHLORIDE 1000 MG TABLET GT SCH ×2 (08:58→17:00)
[2020-12-23] MEDS: ASCORBIC ACID 500 MG TABLET GT SCH (08:58)
[2020-12-23] MEDS: CHLORHEXIDINE GLUCONATE 15 ML UDC MM SCH ×2 (08:58→20:25)
[2020-12-23] MEDS: DOCUSATE SODIUM LIQ 100 MG/10 ML UDC GT SCH ×2 (08:58→17:13)
[2020-12-23] MEDS: LISINOPRIL (20MG) 20 MG TABLET GT SCH ×2 (08:59→17:13)
[2020-12-23] MEDS: AMLODIPINE BESYLATE 10 MG TABLET GT SCH (08:59)
[2020-12-23] MEDS: FOLIC ACID 1 MG TABLET GT SCH (08:59)
[2020-12-23] MEDS: METOPROLOL TARTRATE 50 MG TABLET GT SCH ×2 (08:59→20:27)
[2020-12-23] MEDS ORDERED: FENTANYL TD PATCH (50 MCG/HR) 50 MCG/HR PATCH.TD72 TD SCH (09:00)
[2020-12-23 16:00] VITALS: BP 141/71
--- NOTE | 2020-12-23 17:11 | NUR ---
RN NOTE PER DR SÁNCHEZ, HOLD SODIUM CHLORIDE PT'S CHLORIDE LEVEL IS HIGH 108
--- NOTE | 2020-12-23 19:02 | NUR ---
RN CLOSING NOTE NO CHANGES TO PT DURING SHIFT, PT STABLE. PT ON NC 2L SPO2 95%, NO SIGNS OF RESP DISTRESS OR SOB. TRACH CAPPED. GT FEED TO BE TURNED OFF FROM 2200 TO 0200 (4HRS). AWAITING BLOOD CX RESULTS, POSSIBLE D/C TOMORROW. ALL PT SAFETY PRECAUTIONS IN PLACE, WILL ENDORSE ROLAN TO ONCOMING RN
--- NOTE | 2020-12-23 19:20 | NUR ---
RN NOTE RECEIVED PATIENT IN BED RESTING ALERT ORIENTED X2 ABLE TO MAKE NEEDS KNOWN,ON 2L OXYGEN VIA NASAL CANNULA, O2:95% IV SITE IS ON RITHT FOREARM INTACT PATENT ON G-TUBE FEEDING GLUCERNA 1.2 45CC/HR CHECKED PLACEMENT IN PLACE NO RESIDUAL INCONTINENT TO BOWEL/BLADER,SAFETY MEASURE IMPLEMENT BED IN LOW POSITON AND LOCKED HEAD OF THE BED ELEVATED CALL LIGHT WITHIN REACH CONTINUE TO MONITOR.
[2020-12-23] MEDS: ENOXAPARIN SODIUM 40 MG/0.4 ML DISP.SYRIN SQ SCH (20:27)
[2020-12-23] MEDS: THIAMINE HCL 100 MG TABLET GT SCH (21:38)
[2020-12-23] MEDS: LEVOFLOXACIN (250MG) 250 MG TABLET PO SCH (21:38)
[2020-12-24] VITALS: BP 115/60
[2020-12-24 06:31] LABS: BASOPHILS % (AUTO) 0.4 % (0.0-2.0); EOSINOPHILS % (AUTO) 2.9 % (0.0-6.0); HEMATOCRIT 28 % (33-45); HEMOGLOBIN 9.6 g/dL (11.5-14.8); LYMPHOCYTES # (AUTO) 2.2 /CMM (0.8-4.8); LYMPHOCYTES % (AUTO) 26.6 % (20.0-44.0); MEAN CORPUSCULAR HGB CONC 34 g/dl (31.0-36.0); MEAN CORPUSCULAR VOLUME 95 fL (82-100); MONOCYTES # (AUTO) 0.6 /CMM (0.1-1.30); MONOCYTES % (AUTO) 7.6 % (2.0-12.0); NEUTROPHILS # (AUTO) 5.1 /CMM (1.8-8.9); NEUTROPHILS % (AUTO) 62.5 % (43.0-81.0); PLATELET COUNT (AUTO) 371 /CMM (150-450); RED BLOOD CELL COUNT(AUTO) 2.98 MIL/uL (4.0-5.2); WHITE BLOOD COUNT (AUTO) 8.2 K/uL (4.3-11.0)
[2020-12-24 06:45] LABS: CALCIUM, SERUM 8.7 mg/dL (8.5-10.1); CREATININE 0.8 mg/dL (0.6-1.3); POTASSIUM 4.3 mmol/L (3.5-5.1)
--- NOTE | 2020-12-24 07:19 | NUR ---
RN NOTE PATIENT REMAINS ON ALERT ORIENTED X2 VERBALLY RESPONSIVE NO SOB NOT ACUTE DISTRESS NOTED,ALL DUE MEDS GIVEN MD ORDERED ENDORSE NEXT COMING SHIFT FOR CONTINUATION OF CARE.
[2020-12-24] MEDS: GLUCERNA 1.2 1,000 ML BOTTLE GT PRN (07:23)
--- NOTE | 2020-12-24 07:58 | NUR ---
DIRECTOR INTEGRATED OPENING NOTE PATIENT IS IN BED RESTING, PATIENT IS IN NO ACUTE DISTRESS. PATIENT IS BED BOUND. PATIENT IS ON G-TUBE FEEDING. SAFETY PRECAUTIONS ARE ON, BED IS LOCKED IN THE LOWEST POSITION, SIDE RAILS ARE UP, CALL LIGHT WITHIN REACH, WILL CONTINUE TO MONITOR CLOSELY THROUGHOUT THE SHIFT.
[2020-12-24 08:00] VITALS: BP 134/68
[2020-12-24] MEDS: DOCUSATE SODIUM LIQ 100 MG/10 ML UDC GT SCH ×2 (09:35→17:56)
[2020-12-24] MEDS: ASCORBIC ACID 500 MG TABLET GT SCH (09:35)
[2020-12-24] MEDS: FERROUS SULFATE UDC 300 MG/5 ML UDC GT SCH (09:35)
[2020-12-24] MEDS: CHLORHEXIDINE GLUCONATE 15 ML UDC MM SCH ×2 (09:35→21:45)
[2020-12-24] MEDS: AMLODIPINE BESYLATE 10 MG TABLET GT SCH (09:35)
[2020-12-24] MEDS: FOLIC ACID 1 MG TABLET GT SCH (09:35)
[2020-12-24] MEDS: LISINOPRIL (20MG) 20 MG TABLET GT SCH ×2 (09:36→17:56)
[2020-12-24] MEDS: METOPROLOL TARTRATE 50 MG TABLET GT SCH ×2 (09:36→21:00)
[2020-12-24] MEDS: PANTOPRAZOLE 40 MG/PACK PACK GT SCH (09:36)
[2020-12-24 16:00] VITALS: BP 156/63
[2020-12-24] MEDS: VANCOMYCIN HCL 0.75 GM in IV D5W 250 ML IV SCH ×2 (17:57)
--- NOTE | 2020-12-24 18:44 | NUR ---
FABRIC SEPARATOR OPERATOR CLOSING NOTE PATIENT IS IN BED RESTING, PATIENT IS IN NO ACUTE DISTRESS. PATIENT IS BED BOUND. PATIENT IS ON G-TUBE FEEDING,TOLERATING WELL. SAFETY PRECAUTIONS ARE ON, BED IS LOCKED IN THE LOWEST POSITION, SIDE RAILS ARE UP, CALL LIGHT WITHIN REACH, ENDORSE PATIENT TO BUCKET CHUCKER NURSE FOR ROLAN.
--- NOTE | 2020-12-24 19:30 | NUR ---
RN NOTE RECEIVED PATIENT IN BED. A/OX2, SAMI SPEAKING. ON OXYGEN 2L/MIN VIA NASAL CANULA. PATIENT HAS A TRACH THAT IS CAPPED. RESPIRATIONS ARE EVEN AND UNLABORED. NO S/S SOB NOTED. NO S/S PAIN NOTED. IN NO APPARENT DISTRESS. IV ACCESS IN RFA#20 PATENT AND SALINE LOCKED. BED IS LOW AND LOCKED, HOB ELEVATED IN SEMI FOWLERS, SIDE RAILS UP X2, CALL LIGHT WITHIN REACH. WILL CONTINUE TO MONITOR THROUGHOUT SHIFT.
[2020-12-24 20:00] VITALS: BP 105/66
[2020-12-24] MEDS: LEVOFLOXACIN (250MG) 250 MG TABLET PO SCH (21:45)
[2020-12-24] MEDS: THIAMINE HCL 100 MG TABLET GT SCH (21:45)
[2020-12-24] MEDS: ENOXAPARIN SODIUM 40 MG/0.4 ML DISP.SYRIN SQ SCH (21:46)
--- NOTE | 2020-12-24 21:51 | NUR ---
rn note did not administer metoprolol 50mg bp 105/66 hr 78.
[2020-12-25 04:00] VITALS: BP 147/68
[2020-12-25] MEDS: GLUCERNA 1.2 1,000 ML BOTTLE GT PRN (05:15)
--- NOTE | 2020-12-25 06:29 | NUR ---
RN NOTE PATIENT IN BED. A/OX2, ON OXYGEN 2L/MIN VIA NASAL CANULA. NO RESP DISTRESS. PATIENT HAVING PRODUCTIVE COUGH THROUGHOUT SHIFT. NO DISTRESS. IV IN RFA#20. BED REMAINS LOW AND LOCKED, HOB ELEVATED IN SEMI FOWLERS, SIDE RAILS UP X2, CALL LIGHT WITHIN REACH. WILL ENDORSE TO ONCOMING SHIFT.
[2020-12-25 07:01] LABS: BASOPHILS % (AUTO) 0.3 % (0.0-2.0); EOSINOPHILS % (AUTO) 2.3 % (0.0-6.0); HEMATOCRIT 32 % (33-45); HEMOGLOBIN 10.9 g/dL (11.5-14.8); LYMPHOCYTES # (AUTO) 2.8 /CMM (0.8-4.8); LYMPHOCYTES % (AUTO) 26.7 % (20.0-44.0); MEAN CORPUSCULAR HGB CONC 34 g/dl (31.0-36.0); MEAN CORPUSCULAR VOLUME 95 fL (82-100); MONOCYTES # (AUTO) 0.7 /CMM (0.1-1.30); MONOCYTES % (AUTO) 6.7 % (2.0-12.0); NEUTROPHILS # (AUTO) 6.6 /CMM (1.8-8.9); PLATELET COUNT (AUTO) 437 /CMM (150-450); RED BLOOD CELL COUNT(AUTO) 3.42 MIL/uL (4.0-5.2); WHITE BLOOD COUNT (AUTO) 10.4 K/uL (4.3-11.0)
--- NOTE | 2020-12-25 07:30 | NUR ---
RN OPENING NOTE GREENLANDIC SPEAKING PT IN BED SEMIFOWLER'S, A/Ox2 ABLE TO EXPRESS NEEDS, ON NC 2LPM SPO2 96% WITH NO S/S OF RESP DISTRESS OR SOB. PT PASSY-CODY TRACH IS CAPPED. PT SKIN INTACT, ABD BRUISES NOTED, RT KNEE AND CALF SCARS ALSO NOTED. PT G-TUBE FEED GLUCERNA 1.2 RUNNING @ 55ML/HR x 24HR, G-TUBE AUSCULTATED FOR POSITIVE PLACEMENT, INTACT AND FLUSHED, NO RESIDUALS NOTED. PT PT RFA #20 FLUSHED, INTACT AND PATENT, NO S/S OF INFILTRATION/INFECTION. AWAITING BLOOD CX RESULTS FOR D/C. ALL PT SAFETY PRECAUTIONS IN PLACE, WILL CONT TO MONITOR
[2020-12-25 07:39] LABS: CALCIUM, SERUM 9.3 mg/dL (8.5-10.1); CREATININE 0.9 mg/dL (0.6-1.3); MAGNESIUM 2.4 mg/dL (1.8-2.4); PHOSPHORUS 3.8 mg/dL (2.5-4.9); POTASSIUM 4.3 mmol/L (3.5-5.1)
[2020-12-25 08:00] VITALS: BP 123/69
[2020-12-25] MEDS: DOCUSATE SODIUM LIQ 100 MG/10 ML UDC GT SCH ×2 (08:35→16:41)
[2020-12-25] MEDS: PANTOPRAZOLE 40 MG/PACK PACK GT SCH (08:35)
[2020-12-25] MEDS: CHLORHEXIDINE GLUCONATE 15 ML UDC MM SCH ×2 (08:35→21:30)
[2020-12-25] MEDS: AMLODIPINE BESYLATE 10 MG TABLET GT SCH (08:35)
[2020-12-25] MEDS: ASCORBIC ACID 500 MG TABLET GT SCH (08:35)
[2020-12-25] MEDS: FOLIC ACID 1 MG TABLET GT SCH (08:35)
[2020-12-25] MEDS: FERROUS SULFATE UDC 300 MG/5 ML UDC GT SCH (08:35)
[2020-12-25] MEDS: LISINOPRIL (20MG) 20 MG TABLET GT SCH ×2 (08:36→16:42)
[2020-12-25] MEDS: METOPROLOL TARTRATE 50 MG TABLET GT SCH ×2 (08:36→21:30)
[2020-12-25] MEDS: VANCOMYCIN HCL 0.75 GM in IV D5W 250 ML IV SCH (12:19)
--- NOTE | 2020-12-25 13:30 | NUR ---
RN NOTE- BLOOD CXs PER [facility], BLOOD CXs WILL BE RESULTED TOMORROW
[2020-12-25 16:00] VITALS: BP 142/62
--- NOTE | 2020-12-25 18:37 | NUR ---
RN CLOSING NOTE PT IS STABLE, NO CHANGES TO PT DURING SHIFT. BLOOD CULTURES TO BE RESULTED TOMORROW IN WHICH PT WILL BE DISCHARGED BACK TO SNF. ALL PT SAFETY PRECAUTIONS IN PLACE. WILL ENDORSE ROLAN TO ONCOMING RN
[2020-12-25 20:00] VITALS: BP 141/68
--- NOTE | 2020-12-25 20:06 | NUR ---
RN NOTE PATIENT IN BED AWAKE. ALERT AND ORIENTED X2. NOTED WITH PASSY CODY TRACH CAPPED. ON O2 2L VIA NASAL CANNULA, NO SIGNS OF RESPIRATORY DISTRESS. DENIES ANY PAIN AT THIS TIME. WITH G-TUBE GLUCERNA 1.2 @55ML/HR, NO RESIDUAL NOTED. HEAD OF BED ELEVATED. RIGHT FOREARM #20 PATENT AND INTACT. BED LOCKED AND IN LOWEST POSITION. CALL LIGHT WITHIN REACH. ALL NEEDS ANTICIPATED.
[2020-12-25] MEDS: LEVOFLOXACIN (250MG) 250 MG TABLET PO SCH (21:35)
[2020-12-25] MEDS: THIAMINE HCL 100 MG TABLET GT SCH (21:35)
[2020-12-25] MEDS: ENOXAPARIN SODIUM 40 MG/0.4 ML DISP.SYRIN SQ SCH (21:39)
[2020-12-26] MEDS: GLUCERNA 1.2 1,000 ML BOTTLE GT PRN (02:58)
[2020-12-26 04:00] VITALS: BP 126/68
[2020-12-26 06:46] LABS: CALCIUM, SERUM 8.7 mg/dL (8.5-10.1); CREATININE 0.9 mg/dL (0.6-1.3); MAGNESIUM 2.6 mg/dL (1.8-2.4); PHOSPHORUS 3.8 mg/dL (2.5-4.9); POTASSIUM 4.4 mmol/L (3.5-5.1)
--- NOTE | 2020-12-26 06:55 | NUR ---
RN NOTE PATIENT ALERT AND ORIENTED X2. NOTED WITH PASSY CODY TRACH CAPPED. ON O2 2L VIA NASAL CANNULA, NO SIGNS OF RESPIRATORY DISTRESS. G-TUBE PATENT AND INTACT RUNNING GLUCERNA 1.2 @55ML/HR, NO RESIDUAL NOTED. HEAD OF BED ELEVATED. RIGHT FOREARM #20 PATENT AND INTACT. ALL DUE MEDS GIVEN ORDERED. BED LOCKED AND IN LOWEST POSITION. CALL LIGHT WITHIN REACH. WILL ENDORSE TO AM SHIFT.
[2020-12-26 07:06] LABS: BASOPHILS % (AUTO) 0.3 % (0.0-2.0); EOSINOPHILS % (AUTO) 1.8 % (0.0-6.0); HEMATOCRIT 29 % (33-45); HEMOGLOBIN 9.9 g/dL (11.5-14.8); LYMPHOCYTES # (AUTO) 2.8 /CMM (0.8-4.8); LYMPHOCYTES % (AUTO) 25.2 % (20.0-44.0); MEAN CORPUSCULAR HGB CONC 34 g/dl (31.0-36.0); MEAN CORPUSCULAR VOLUME 95 fL (82-100); MONOCYTES # (AUTO) 0.7 /CMM (0.1-1.30); MONOCYTES % (AUTO) 6.7 % (2.0-12.0); NEUTROPHILS # (AUTO) 7.2 /CMM (1.8-8.9); PLATELET COUNT (AUTO) 403 /CMM (150-450); RED BLOOD CELL COUNT(AUTO) 3.09 MIL/uL (4.0-5.2)
--- NOTE | 2020-12-26 07:30 | NUR ---
MS RN AM NOTE PT IN BED SEMIFOWLER'S, A/Ox2 ABLE TO EXPRESS NEEDS, SPEAKS MAORI, ON NC 2LPM SPO2 96% WITH NO S/S OF RESP DISTRESS OR SOB. PT PASSY-CODY TRACH IS CAPPED. DENIES PAIN AT THIS TIME. PT PT RFA #20 FLUSHES WELL SITE CLEAR.SKIN INTACT, ABD BRUISES NOTED, RT KNEE AND CALF SCARS ALSO NOTED. PT G-TUBE FEED GLUCERNA 1.2 RUNNING @ 55ML/HR x 24HR, G-TUBE CHECKED FOR PLACEMENT, 0 RESIDUAL, AWAITING BLOOD CX RESULTS FOR D/C. ALL PT SAFETY PRECAUTIONS IN PLACE, WILL CONT TO MONITOR
[2020-12-26 08:00] VITALS: BP 158/79
[2020-12-26] MEDS ORDERED: Levofloxacin (250MG) PO (08:20)
[2020-12-26] MEDS ORDERED: NUT.237L45 GT (08:20)
[2020-12-26] MEDS ORDERED: TEMA15CA5 GT (08:20)
[2020-12-26] MEDS: METOPROLOL TARTRATE 50 MG TABLET GT SCH (09:15)
[2020-12-26] MEDS: CHLORHEXIDINE GLUCONATE 15 ML UDC MM SCH (09:15)
[2020-12-26] MEDS: PANTOPRAZOLE 40 MG/PACK PACK GT SCH (09:15)
[2020-12-26] MEDS: DOCUSATE SODIUM LIQ 100 MG/10 ML UDC GT SCH (09:15)
[2020-12-26] MEDS: FERROUS SULFATE UDC 300 MG/5 ML UDC GT SCH (09:15)
[2020-12-26] MEDS: ASCORBIC ACID 500 MG TABLET GT SCH (09:16)
[2020-12-26] MEDS: FOLIC ACID 1 MG TABLET GT SCH (09:16)
[2020-12-26] MEDS: AMLODIPINE BESYLATE 10 MG TABLET GT SCH (09:16)
[2020-12-26] MEDS: LISINOPRIL (20MG) 20 MG TABLET GT SCH (09:16)
--- NOTE | 2020-12-26 09:30 | NUR ---
RN NOTES DUE MEDS GIVEN
[2020-12-26 12:00] VITALS: BP 108/66
--- NOTE | 2020-12-26 14:58 | NUR ---
RN NOTES REPORT GIVEN TO [facility] STAFF. PATIENT TO BE PICKED UP AT 1600 BY AMBULANCE TO TRANSPORT TO FACILITY.
--- NOTE | 2020-12-26 16:50 | NUR ---
RN NOTES PATIENT DISCHARGED TO [facility] PER MD TODAY, STABLE CONDITION. PROVIDED DC INSTRUCTIONS, HEALTH TEACHINGS AND MED RECON LIST/PRESCRIPTION. PATIENT TO FOLLOW UP WITH PCP IN 1 WEEK OR PER FACILITY PROTOCOL. RT FOREARM IV ACCES REMOVED, PRESSURE APPLIED, NO BLEEDING, DRESSING IN PLACE. ALL BELONGINGS CHECKED AND RETURNED, ALL PAPERWORKS SIGNED, PICKED UP BY 3 AMBULANCE CREW TO BE TRANSPORTED TO FACILITY VIA AMBULANCE. PATIENT SAYS NO TO PICTURE TAKING OF SKIN ISSUES.
== END 2020-12-26 16:51 | DRG 720 ==
LOC: ER 12:53 → MEDSG1 16:10
PROVIDERS: ADMIT Nurse Practitioner Acute Care; ATTEND Registered Nurse
DX: A41.9 Sepsis, unspecified organism (principal); N17.0 Acute kidney failure with tubular necrosis; G93.41 Metabolic encephalopathy; E44.0 Moderate protein-calorie malnutrition; Z93.0 Tracheostomy status; J96.10 Chronic respiratory failure, unspecified whether with hypoxia or hypercapnia; R13.10 Dysphagia, unspecified; D68.59 Other primary thrombophilia; E87.1 Hypo-osmolality and hyponatremia; Z93.1 Gastrostomy status; D63.8 Anemia in other chronic diseases classified elsewhere; K21.9 Gastro-esophageal reflux disease without esophagitis; N39.0 Urinary tract infection, site not specified; F29 Unspecified psychosis not due to a substance or known physiological condition; E78.5 Hyperlipidemia, unspecified; E86.1 Hypovolemia; F32.9 Major depressive disorder, single episode, unspecified; J45.909 Unspecified asthma, uncomplicated; E88.09 Other disorders of plasma-protein metabolism, not elsewhere classified; M62.50 Muscle wasting and atrophy, not elsewhere classified, unspecified site; B96.20 Unspecified Escherichia coli [E. coli] as the cause of diseases classified elsewhere; Z74.09 Other reduced mobility; J47.9 Bronchiectasis, uncomplicated; I10 Essential (primary) hypertension; E11.9 Type 2 diabetes mellitus without complications; Z79.84 Long term (current) use of oral hypoglycemic drugs; Z20.822 Contact with and (suspected) exposure to COVID-19
CPT/HCPCS: 36415; 71045-TC; 80048-TC; 80061-TC; 80076-TC; 80202-TC; 81001; 83605-TC; 83735-TC; 84100-TC; 84443-TC; 84484-TC; 85025-TC; 85730-TC; 87040-TC; 87081-TC; 87086-TC; 87186-TC; 93307-TC; C9113; G0378; J1650; J2543; J3370; J7030; J7050; J7060; J7120; U0003